=== PATIENT | female | born 1990 | race Caucasian/White ===

== ENCOUNTER 2021-07-06 21:32 | Emergency (ER) | payer OTHER, SELFPAY ==
[2021-07-06 21:42] VITALS: BP 119/72; PULSE 104; RESP 18; TEMP 37.4; O2SAT 98; BMI 22.8
--- NOTE | 2021-07-06 21:54 | XR_ITS ---
PROCEDURE INFORMATION: Exam: XR Chest Exam date and time: 07/06/2021 9:54 PM Age: 30 years old Clinical indication: Shortness of breath; Patient HX: Short of breath; Additional info: SOA TECHNIQUE: Imaging protocol: XR of the chest. Views: 1 view. COMPARISON: No relevant prior studies available. FINDINGS: Lungs: Unremarkable. No consolidation. Pleural spaces: Unremarkable. No pleural effusion. No pneumothorax. Heart/Mediastinum: Unremarkable. No cardiomegaly. Bones/joints: Unremarkable. IMPRESSION: No acute findings.
[2021-07-06 22:00] LABS: Coronavirus 19, PCR Not Detected (NotDetected); Influenza A, PCR Not Detected (NotDetected); Influenza B, PCR Not Detected (NotDetected)
[2021-07-06 22:08] LABS: Basophils # 0.1 K/mm3 (0-0.2); Basophils % 0.4 % (0.1-2.0); Eosinophils # 0.2 K/mm3 (0.0-0.4); Eosinophils % 1.3 % (0.1-12.0); Hematocrit 41.3 % (37.0-47.0); Hemoglobin 13.6 g/dL (12.2-16.2); Lymphocytes # 2.4 K/mm3 (0.7-4.5); Lymphocytes % 15.6 % (10-50); Mean Corpuscular Hemoglobin 29.7 pg (27.0-31.2); Mean Platelet Volume 8.3 fl (7.4-10.4); Monocytes # 0.6 K/mm3 (0.1-1.0); Monocytes % 3.6 % (1.7-9.3); Neutrophils # 12.2 K/mm3 (1.8-7.8); Neutrophils % 79.1 % (37.0-80.0); Platelet Count 353 K/mm3 (142-424); Red Blood Count 4.59 M/mm3 (4.20-5.40); Red Cell Distribution Width 13.6 % (11.5-17.5); White Blood Count 15.4 K/mm3 (4.8-10.8)
[2021-07-06 22:10] LABS: MANUAL DIFFERENTIAL MANUAL DIFFERENTIAL (MANUAL DIFF)
[2021-07-06 22:18] LABS: HCG Qualitative, Serum Negative (Negative)
[2021-07-06 22:19] LABS: Eosinophils % 1 % (0-3); Lymphocytes % 13 % (10-50); Monocytes % 1 % (2-9); Neutrophils % 78 % (42-76); Platelet Estimate Normal; RBC Morphology Normal; Total Cells Counted 100
[2021-07-06 22:20] LABS: Alanine Aminotransferase 19 U/L (12-78); Albumin Level 4.7 g/dl (3.5-5.0); Albumin/Globulin Ratio 1.7 (1.1-1.8); Alkaline Phosphatase 85 U/L (38-126); Anion Gap 14.3 mEq/L (5-15); Aspartate Amino Transferase 27 U/L (14-36); Bilirubin,Total 0.4 mg/dl (0.2-1.3); Blood Urea Nitrogen 10 mg/dl (7-17); Calcium 9.3 mg/dl (8.4-10.2); Carbon Dioxide 23 mmol/L (22.0-30.0); Chloride 104 mmol/L (98-107); Creatinine Clearance Estimated 146 mL/min (50-200); Estimated Glomerular Filt Rate 117 ml/min (>60); GFR (African American) 141 ML/MIN (>60); Globulin 2.8 g/dL (1.3-3.2); Glucose 130 mg/dl (74-100); Potassium 3.3 mmoL/L (3.5-5.1); Sodium 138 mmol/L (136-145); Total Protein,Serum 7.5 g/dl (6.3-8.2)
[2021-07-06 22:25] LABS: C-Reactive Protein 2.6 mg/L (0-4)
[2021-07-06 22:38] LABS: Erythrocyte Sedimentation Rate 14 mm/hr (0-20)
[2021-07-06 22:40] LABS: Procalcitonin < 0.030 ng/mL (0.0-2.0)
--- NOTE | 2021-07-06 23:43 | HMH.EDNVD ---
ED Disposition Clinical Impression: Pharyngitis Qualifiers: Pharyngitis/tonsillitis etiology: unspecified etiology Qualified Code(s): J02.9 - Acute pharyngitis, unspecified Disposition: Home, Self-Care Condition on Discharge: Good Instructions: Sore Throat, DI for COVID-19 (Suspected or Confirmed ) Additional Instructions: fluids and see pcp for follow up Prescriptions: predniSONE [Prednisone 20mg Tab] 20 mg PO BID #10 tab Prescription Printed Azithromycin [Zithromax 250mg tab] 250 mg PO DIRECTED #6 tab Prescription Printed Referrals: Provider,Referral, [Primary Care Provider] - - Critical Care Critical Care Time: No Attestation: On 07/06/21, the high probability of a clinically significant, sudden or life threatening deterioration of the following system(s) required my full and direct attention, intervention and personal management. The time I documented below is in addition to time spent performing reported procedures but includes the following listed in this critical care notation. Medical Decision Making - Medical Records Medical records reviewed: Yes: I reviewed the patient's medical records. - Herman Inquiry Pt receiving controlled substance: No Vital Signs: 07/06/21 21:42 Temperature 99.3 F Temperature Source Oral Pulse Rate [Right Brachial] 104 H Respiratory Rate 18 Blood Pressure [Right Arm] 119/72 Blood Pressure Mean [Right Arm] 87 02 Sat by Pulse Oximetry 98 Oxygen Delivery Method Room Air - Lab Data Lab results reviewed: Yes: I reviewed the patient's lab results. Lab Results 07/06/21 20:45: SARS-CoV-2 (PCR) Not detected, Influenza A Untype (PCR) Not detected, Influenza Type B (PCR) Not detected 07/06/21 21:58: WBC 15.4 H, RBC 4.59, Hgb 13.6, Hct 41.3, MCV 90.0, MCH 29.7, MCHC 33.0, RDW 13.6, Plt Count 353, MPV 8.3, Neut % (Auto) 79.1, Lymph % (Auto) 15.6, Love % (Auto) 3.6, Eos % (Auto) 1.3, Baso % (Auto) 0.4, Neut # (Auto) 12.2 H, Lymph # (Auto) 2.4, Love # (Auto) 0.6, Eos # (Auto) 0.2, Baso # (Auto) 0.1, Total Counted 100, Neutrophils % (Manual) 78 H, Band Neutrophils % 7.0, Lymphocytes % (Manual) 13, Monocytes % (Manual) 1 L, Eosinophils % (Manual) 1, Platelet Estimate Normal, RBC Morphology Normal 07/06/21 21:58: Sodium 138, Potassium 3.3 L, Chloride 104, Carbon Dioxide 23, Anion Gap 14.3, BUN 10, Creatinine 0.60, Estimated Creat Clear 146, Estimated GFR 117, Est GFR ( Amer) 141, Glucose 130 H, Calcium 9.3, Total Bilirubin 0.4, AST 27, ALT 19, Alkaline Phosphatase 85, C-Reactive Protein 2.6, Total Protein 7.5, Albumin 4.7, Globulin 2.8, Albumin/Globulin Ratio 1.7 07/06/21 21:58: Serum HCG, Qual Negative 07/06/21 21:58: ESR 14 07/06/21 21:58: Procalcitonin < 0.030 Result diagrams: 07/06/21 21:58 07/06/21 21:58 Orders (Tests/Meds): ED MEDICATIONS Generic Name Dose Route Start Last Admin Trade Name Freq PRN Reason Stop Dose Admin Sodium Chloride 1,000 mls @ 999 mls/hr 07/06/21 22:00 07/06/21 22:00 Sod Chlor 0.9% 1000ml Bag IV 07/06/21 23:00 999 mls/hr .Q1H1M BEATA Administration Discontinued Medications Generic Name Dose Route Start Last Admin Trade Name Freq PRN Reason Stop Dose Admin Dexamethasone Sodium Phosphate 10 mg 07/06/21 21:52 07/06/21 23:36 Dexamethasone 4mg/Ml 5ml Mdv IV 07/06/21 21:53 10 mg ONCE ONE Administration Ketorolac Tromethamine 30 mg 07/06/21 21:52 07/06/21 23:36 Ketorolac 30mg/Ml Vial IV 07/06/21 21:53 30 mg ONCE ONE Administration Ondansetron HCl 4 mg 07/06/21 21:52 07/06/21 23:36 Ondansetron 4mg/2ml Vial IV 07/06/21 21:53 4 mg ONCE ONE Administration ORDERS Category Date Time Status UA [Urinalysis and Microscopic] Stat Lab 07/06/21 23:44 Received - Radiology Data #1 Image(s): Chest Image Reviewed: Yes I reviewed the patient's radiology image, Yes I have reviewed radiologist's interpretation Preliminary Findings: Normal/NAD Medical Decision Narrative:
[2021-07-06 23:44] LABS: Microscopic, Urine URINE MICROSCOPIC (MICROSCOPIC)
[2021-07-06 23:47] LABS: Appearance,Urine CLEAR (Clear); Bilirubin,Urine Negative (Negative); Blood, Urine Negative (Negative); Color,Urine STRAW (Yellow); Glucose,Urine (UA) Negative (Negative); Ketones,Urine Negative (Negative); Leukocyte Esterase,Urine Negative (Negative); Nitrate,Urine Negative (Negative); Protein,Urine Negative (Negative); Specific Gravity, Urine 1.015 (1.005-1.030); Urobilinogen,Urine 0.2 EU/dl (0.2)
[2021-07-06 23:55] VITALS: BP 123/75; PULSE 75; RESP 19; TEMP 37.1; O2SAT 98
== END 2021-07-07 00:05 | disposition home or self-care (01) ==
PROVIDERS: Emergency Provider Emergency Medicine
DX: J02.9 Acute pharyngitis, unspecified (principal); F17.210 Nicotine dependence, cigarettes, uncomplicated; Z20.822 Contact with and (suspected) exposure to COVID-19
CPT/HCPCS: 71045; 80053; 81001; 84145; 84703; 85007; 85025; 85651; 86140; 96365; 96375; 99283; J2405; U0003

== ENCOUNTER 2021-07-09 16:54 | Emergency (ER) | payer OTHER, SELFPAY ==
[2021-07-09 18:39] VITALS: BP 109/52; PULSE 81; RESP 20; TEMP 36.9; O2SAT 98; BMI 23.4
--- NOTE | 2021-07-09 19:05 | HMH.EDUTC ---
[facility] [place] Clinical Impression: Viral syndrome, Exposure to COVID-19 virus Disposition: Home, Self-Care Condition on Discharge: Good Instructions: DI for Viral Syndrome, DI for COVID-19 (Suspected or Confirmed ), Preventing the Spread of Coronavirus Discharge Instructions Additional Instructions: Drink plenty of fluids. Take tylenol for pain or fever. Continue the medications that you are already on. Return if you begin to have difficulty breathing. Follow up with your regular doctor. GO TO THE ER FOR ANY WORSENING SYMPTOMS Quarantine until you know the results of your covid-19 test. If it is positive, the health department should call you and give you further instructions about your length of Quarantine and other thing. Referrals: Provider,Referral, [Primary Care Provider] - Forms: Work/School Release Time of Disposition: 19:17 Medical Decision Making - Medical Records Medical records reviewed: No: I reviewed the patient's medical records. - Herman Inquiry Pt receiving controlled substance: No Vital Signs: 07/09/21 18:39 07/09/21 19:32 Temperature 98.5 F 98.3 F Temperature Source Oral Pulse Rate 84 Pulse Rate [Left] 81 Respiratory Rate 20 18 Blood Pressure 106/63 L Blood Pressure [Right Arm] 109/52 L Blood Pressure Mean [Right Arm] 71 02 Sat by Pulse Oximetry 98 [facility] [place] - General Stated complaint: covid re test Time Seen by Provider: 07/09/21 19:05 Mode of Arrival: Ambulatory Source of Information: Patient Limitations: No Limitations Description of Symptoms (Recalled from Triage Doc. by RN): pt tested for covid last this past wednesday. Her results were negative. pt states she is still having fever, loss of taste, n/v, fatigue and GUZMAN. HEENT Symptoms (Recalled from RN notes): Yes (loss of taste and GUZMAN) Resp Symptoms (Recalled from RN notes): No Skin Symptoms (Recalled from RN notes): No MS Symptoms (Recalled from RN notes): No Functional Status (Recalled from RN notes): fatigue - History of Present Illness Provider Complaint: She was in the er here last Wednesday (3 days ago) with these same symptoms. She states that she tested negative for covid-19 then. Since then she has continued to feel the same way. She was prescribed a z-pack in the er that she is taking, but she states that it is not helping. She would like to be tested again for covid-19 because she was exposed before these symptoms began. - Related Data Previous Rx's Medication Instructions Recorded Azithromycin [Zithromax 250mg 250 mg PO DIRECTED #6 tab 07/06/21 tab] predniSONE [Prednisone 20mg 20 mg PO BID #10 tab 07/06/21 Tab] Allergies Allergy/AdvReac Type Severity Reaction Status Date / Time clindamycin [CLINDAMYCIN] Allergy Mild Unverified 11/09/17 14:01 codeine [CODEINE] Allergy Mild Unverified 11/09/17 14:01 - Worker's Comp Is this a Worker's Comp case?: No [facility] History - Hepatitis A Screen Drug use history?: No High risk sexual behaviors?: No History of sexually transmitted infection?: No Currently employed?: No Childcare worker?: No Do you have indoor plumbing?: Yes Do you have electricity?: Yes Attestation statement:: This patient has been screened for Hepatitis A risk factors. I have reviewed the patient's past medical history: Yes ROS Obtained: Yes All systems reviewed & no additional complaints - Constitutional Constitutional: Reports system reviewed and no additional complaints, except as docu - Eyes Eyes: Reports system reviewed and no additional complaints, except as docu - ENT Ears, Nose, Mouth, and Throat: Reports system reviewed and no additional complaints, except as docu - Cardiovascular Cardiovascular: Reports system reviewed and no additional complaints, except as docu - Respiratory Respiratory: Reports system reviewed and no additional complaints, except as docu - Gastrointestinal Gastrointestingal: Reports: system review
[2021-07-09 19:32] VITALS: BP 106/63; PULSE 84; RESP 18; TEMP 36.8
== END 2021-07-09 19:39 | disposition home or self-care (01) ==
PROVIDERS: Emergency Provider Nurse Practitioner Family
DX: B34.9 Viral infection, unspecified (principal); Z20.822 Contact with and (suspected) exposure to COVID-19; Z88.1 Allergy status to other antibiotic agents; Z88.5 Allergy status to narcotic agent
CPT/HCPCS: 99202; G0463; U0003

== ENCOUNTER 2023-04-25 16:19 | Emergency (ER) | payer MEDICAID, SELFPAY ==
[2023-04-25 16:21] VITALS: BP 133/86; PULSE 103; RESP 17; TEMP 36.7; O2SAT 100; BMI 19.8
[2023-04-25 16:30] VITALS: BP 122/82; PULSE 88; RESP 18; O2SAT 100
--- NOTE | 2023-04-25 16:49 | HMH.EDGENADL ---
Discharge Plan Disposition Patient Disposition: Home, Self-Care Condition: Fair Prescriptions Prescriptions: New erythromycin 5 mg/gram (0.5 %) ointment 1 applic ophthalmic (eye) QID Qty: 3.5 0RF No Action azithromycin 250 MG tablet 250 mg PO DIRECTED Qty: 6 0RF Rx Instructions: Take two (2) tablets on day #1, then one (1) tablet day #2 thru #5 prednisone 20 MG tablet 20 mg PO BID Qty: 10 0RF Referrals Follow up/Referrals: Provider,Referral, MD [Primary Care Provider] - See instructions Activity Restrictions/Add. Instructions Additional Instructions/Restrictions: You have been evaluated for right eye pain. This is due to a large corneal abrasion. Please use erythromycin ointment 4 times daily as prescribed. Tylenol and Motrin for pain. It is very important that you follow-up with an eye doctor, preferably within 24 to 48 hours. Return to the emergency department at once for any new or worsening symptoms. Clinical Impressions Clinical Impression: Corneal abrasion Instructions Patient Instructions: DI for Corneal Abrasion Discharge ED Provider: Hiral Burrows Adult HPI General Chief complaint: Eye Problems Stated complaint: RT eye irritated Time Seen by Provider: 04/25/23 16:31 Mode of Arrival: Ambulatory Limitations: No Limitations Description of Symptoms (Recalled from ER Triage Doc. by RN): PT WITH PAIN TO RIGHT EYE, FOREIGN BODY SENSATION, LIGHT SENSITIVE AND BLURRY VISION History of Present Illness HPI narrative: 32-year-old female presenting to the emergency department with right eye pain. Accident happened on Wednesday, 2 days ago. She was jumping on a trampoline when she believes that she got poked in the eye by another person. She had immediate pain and tearing. Over the last 2 days she has had sensitivity to light. Feels like her eye is watering frequently. Her vision is somewhat blurry. She denies any pain with eye motion. She does not wear glasses or contact lenses. No medications prior to arrival. Related Data Previous Rx's Medication Instructions Recorded azithromycin 250 mg tablet 250 mg PO DIRECTED #6 tabs 07/06/21 prednisone 20 mg tablet 20 mg PO BID #10 tabs 07/06/21 erythromycin 5 mg/gram (0.5 %) eye 1 applic ophthalmic (eye) QID #3.5 04/25/23 ointment grams Allergies Allergy/AdvReac Type Severity Reaction Status Date / Time clindamycin [CLINDAMYCIN] Allergy Mild Unverified 11/09/17 14:01 codeine [CODEINE] Allergy Mild Unverified 11/09/17 14:01 [facility] Disclaimer: The information contained in this section may have been updated after the patient was seen, as this information can be updated by other users. Social History Smoking Status: Never smoker alcohol intake: never current occupational status: employed Travel in the last 8 weeks: None ROS Obtained: Yes All systems reviewed & no additional complaints except as documented Constitutional Constitutional: Denies headache(s) Eyes Eyes: Reports irritation, Denies loss of vision, Reports sensitivity to light, Reports eye pain and Reports photophobia ENT Ears, Nose, Mouth, and Throat: Denies dizziness and Denies headache(s) Neurologic Neurologic: Denies dizziness, Denies headache(s) and Denies loss of vision Physical Exam General General appearance: alert and in no apparent distress Head Head exam: atraumatic and normocephalic Eye Eye exam: Present conjunctival redness (Right), discharge and other (Obvious irritation, abrasion to the right cornea.) ENT ENT exam: Present normal exam and mucous membranes moist Chest Chest inspection: Present normal inspection and symmetric chest wall rise Respiratory Respiratory exam: Present normal lung sounds bilaterally; Absent respiratory distress or wheezes Cardiovascular Cardiovascular exam: Present regular rate and normal rhythm Abdominal Exam Abdominal exam: Present soft Neurological Exam Neurological exam: Present alert an
[2023-04-25 17:00] VITALS: BP 114/81; PULSE 83; O2SAT 96
[2023-04-25 17:23] VITALS: BP 114/81; PULSE 81; RESP 17; TEMP 36.7; O2SAT 99
== END 2023-04-25 17:24 | disposition home or self-care (01) ==
PROVIDERS: Emergency Provider Emergency Medicine
DX: S05.01XA Injury of conjunctiva and corneal abrasion without foreign body, right eye, initial encounter (principal); W50.0XXA Accidental hit or strike by another person, initial encounter; Z23 Encounter for immunization
CPT/HCPCS: 90471; 90715; 96372; 99283; 99284

== ENCOUNTER 2024-04-10 12:45 | Emergency (ER) | payer MEDICAID, SELFPAY ==
[2024-04-10 12:50] VITALS: BP 120/78; PULSE 84; RESP 20; TEMP 36.9; O2SAT 98; BMI 21.2
--- NOTE | 2024-04-10 13:05 | EXP.UTC ---
Discharge Plan Disposition Patient Disposition: Home, Self-Care Condition: Good Prescriptions Prescriptions: New prednisone 5 mg tablets,dose pack See Rx Instructions .ROUTE .COMPLEX Qty: 21 0RF Rx Instructions: take as directed on package instructions Referrals Follow up/Referrals: Provider,Referral, MD [Primary Care Provider] - See instructions Activity Restrictions/Add. Instructions Additional Instructions/Restrictions: Start oral steriods tomorrow Over the counter Benadryl for itching Oatmeal baths may help with rash and drying of rash Follow up with your Family Doctor if needed Straight to ER if any life threatening symptom Clinical Impressions Clinical Impression: Rash and nonspecific skin eruption Instructions Patient Instructions: Poison Dino, Poison [place], Poison [place], DI for Poison Dino Allergy Discharge ED Provider: Julieth Lambert [facility] General Stated complaint: poison dino Mode of Arrival: Ambulatory Source of Information: Patient Limitations: No Limitations Time Seen by Provider: 04/10/24 13:05 Description of Symptoms (Recalled from Triage Doc. by RN): PATIENT C/O POISON DINO RASH X 2-3 WEEKS THAT IS NOT GETTING BETTER WITH BENDRYL HEENT Symptoms (Recalled from RN notes): No Resp Symptoms (Recalled from RN notes): No Skin Symptoms (Recalled from RN notes): Yes MS Symptoms (Recalled from RN notes): No Functional Status (Recalled from RN notes): WNL History of Present Illness Provider Complaint: Patient states that she has been fighting poison dino rash for a couple of weeks but now she has started breaking out on her face and it is spreading on her legs so she came in to get a steriod shot to help it Related Data Previous Rx's Medication Instructions Recorded prednisone 5 mg tablets in a dose See Rx Instructions PO .COMPLEX 04/10/24 pack #21 tabs Allergies Allergy/AdvReac Type Severity Reaction Status Date / Time clindamycin [CLINDAMYCIN] Allergy Mild Verified 04/10/24 13:02 codeine [CODEINE] Allergy Mild Verified 04/10/24 13:02 Worker's Comp Is this a Worker's Comp case?: No [facility] Disclaimer: The information contained in this section may have been updated after the patient was seen, as this information can be updated by other users. Surgical History (Updated 04/10/24 @ 13:02 by Shantal Short RN) History of tympanostomy tube placement H/O tubal ligation History of tonsillectomy History of cholecystectomy Social History (Updated 04/25/23 @ 17:02 by Hiral Burrows DO) Smoking Status: Never smoker alcohol intake: never current occupational status: employed Travel in the last 8 weeks: None ROS Obtained: Yes All systems reviewed & no additional complaints except as documented and Yes Systems reviewed as appropriate & no additional complaints except as documented Constitutional Constitutional: Reports system reviewed and no additional complaints, except as documented and Reports as per HPI Cardiovascular Cardiovascular: Reports system reviewed and no additional complaints, except as documented and Reports as per HPI Respiratory Respiratory: Reports system reviewed and no additional complaints, except as documented and Reports as per HPI Gastrointestinal Gastrointestingal: Reports system reviewed and no additional complaints, except as documented and as per HPI Musculoskeletal Musculoskeletal: Reports system reviewed and no additional complaints, except as documented and Reports as per HPI Integumentary/Breasts Skin/Breast: Reports system reviewed and no additional complaints, except as documented, Reports as per HPI, Reports pruritus and Reports rash Physical Exam General General appearance: alert and in no apparent distress ENT ENT exam: Present mucous membranes moist Respiratory Respiratory exam: Present normal lung sounds bilaterally; Absent respiratory distress or wheezes Cardiovascular Cardiovascular exam: Present regular rate, normal rhythm and normal heart sounds Neurological Exam Neurological exam: Present alert, oriented X3 and normal gait Skin Skin exam: Present rash (red raised linear like rash noted appears like poison dino rash) Medical Decision Making Herman Inquiry Pt receiving controlled substance: No Herman was queried for this patient: No Vital Signs: 04/10/24 12:50 Temperature 98.5 F Temperature Source Oral Pulse Rate [Left Brachial] 84 Respiratory Rate 20 Blood Pressure [Left Arm] 120/78 Blood Pressure Mean [Left Arm] 92 Blood Pressure Source [Left Arm] Automatic Cuff Blood Pressure Position [Left Arm] Sitting 02 Sat by Pulse Oximetry 98 Oxygen Delivery Method Room Air Medical Decision Narrative: Patient states she has had tubal
[2024-04-10 13:15] VITALS: BP 120/78; PULSE 84; RESP 20; TEMP 36.9; O2SAT 98
[2024-04-10] MEDS: METHYLPREDNISOLONE SOD SUCC 125MG VIAL 125 MG IM (13:15)
== END 2024-04-10 13:25 | disposition home or self-care (01) ==
PROVIDERS: Emergency Provider Nurse Practitioner
DX: L23.7 Allergic contact dermatitis due to plants, except food (principal); R21 Rash and other nonspecific skin eruption; W60.XXXA Contact with nonvenomous plant thorns and spines and sharp leaves, initial encounter
CPT/HCPCS: 96372; 99212; 99214; G0463

== ENCOUNTER 2025-04-03 11:01 | Emergency (ER) | payer MEDICAID, SELFPAY ==
[2025-04-03 11:07] VITALS: BP 125/78; PULSE 105; RESP 20; TEMP 36.8; O2SAT 98; BMI 22.0
[2025-04-03 11:13] LABS: Microscopic, Urine URINE MICROSCOPIC (MICROSCOPIC)
[2025-04-03 11:15] LABS: Appearance,Urine CLEAR (Clear); Bilirubin,Urine Negative (Negative); Blood, Urine Negative (Negative); Color,Urine YELLOW (Yellow); Glucose,Urine (UA) Negative (Negative); Ketones,Urine Negative (Negative); Leukocyte Esterase,Urine Negative (Negative); Nitrate,Urine Negative (Negative); Protein,Urine Negative (Negative); Specific Gravity, Urine <= 1.005 (1.005-1.030); Urobilinogen,Urine 0.2 EU/dl (0.2)
[2025-04-03 11:35] LABS: Squamous Epithelial Cell,Urine Occasional #/hpf (0-5)
--- NOTE | 2025-04-03 12:12 | ED_ITS ---
Discharge Plan Disposition Patient Disposition: Home, Self-Care Chief Complaint: Urogenital-Female Prescriptions Prescriptions: No Action prednisone 5 mg tablets,dose pack See Rx Instructions .ROUTE .COMPLEX Qty: 21 0RF Rx Instructions: take as directed on package instructions Referrals Follow up/Referrals: Provider,Referral, MD [Primary Care Provider] - See instructions Activity Restrictions/Add. Instructions Additional Instructions/Restrictions: Follow-up with your family doctor as needed for this visit to the emergency department. Be sure to stay plenty hydrated Clinical Impressions Clinical Impression: Abnormal urine sediment Instructions Patient Instructions: DI for Urinary Tract Infection (UTI), DI for Urinary Tract Infection in Children Print Language Print Language: Albanian Discharge ED Provider: Dae Mccann General Adult HPI General Chief complaint: Urogenital-Female Stated complaint: brown sand in urine lower back pain Time Seen by Provider: 04/03/25 11:44 Mode of Arrival: Ambulatory Source of Information: Patient Description of Symptoms (Recalled from ER Triage Doc. by RN): pt states last week she had cloudy urine then for the last 3 days she has been peeing sand and having bilateral flank pain denies any fever, n/v. History of Present Illness HPI narrative: Please note that above description of symptoms, in this electronic medical record under categorization of recalled from ER triage doctor by RN are reflective of an initial nursing assessment, however, is not reflective of my full history and physical exam that was personally taken and clarified. Consequentially, this preceding description of symptoms, which may include the patient's categorized chief complaint in the EMR, do not reflect my personal clinical impression, and the ultimate description of history of present illness and patient stated complaints should be deferred to this section of the note. Unless stated otherwise or congruent with this section of the note, additional signs, symptoms, or incongruence should be interpreted as inaccurate with my clinical impression. Related Data Previous Rx's ?Medication ?Instructions ?Recorded prednisone 5 mg tablets in a dose See Rx Instructions PO .COMPLEX 04/10/24 pack #21 tabs Allergies Allergy/AdvReac Type Severity Reaction Status Date / Time clindamycin (CLINDAMYCIN) Allergy Mild Hives Verified 04/03/25 11:49 codeine (CODEINE) Allergy Mild Rash Verified 04/03/25 11:49 Cephalosporins Allergy Hives Verified 04/03/25 11:49 Penicillins Allergy Hives Verified 04/03/25 11:49 PFSH PFSH Disclaimer: The information contained in this section may have been updated after the patient was seen, as this information can be updated by other users. Surgical History (Updated 04/10/24 @ 13:02 by Shantal Short RN) History of tympanostomy tube placement H/O tubal ligation History of tonsillectomy History of cholecystectomy Social History (Updated 04/25/23 @ 17:02 by Hiral Burrows DO) Smoking Status: Never smoker alcohol intake: never current occupational status: employed Travel in the last 8 weeks?: None Have you lived/traveled outside [place] in past 30 days?: No Contact w/someone who lives/traveled outside [place] past 30 days?: No Exposure to someone with infectious disease in past 14 days?: No Do you have a fever (greater than 100.4 F or 38 C)?: No Have you tested positive for COVID-19?: No Exposed to someone with COVID-19 in past 14 days?: No Do you have a sore throat?: No Do you have a cough?: No Do you have any weakness?: No Do you have any diarrhea?: No Are you experiencing any unusual bleeding?: No Do you have any muscle aches/pain?: No Do you have any abdominal pain?: No Are you experiencing loss of taste or smell?: No Other Medical History Have you received the Flu Vaccine for this season: No Have you received the Pneumonia Vaccine: No ROS Obtained: Yes All systems reviewed & no additional complaints except as documented Physical Exam General General appearance: alert Head Head exam: atraumatic and normocephalic Eye Eye exam: Present normal appearance, PERRL and EOMI Neck Neck exam: Present normal inspection, full ROM and trachea midline Respiratory Respiratory exam: Absent respiratory distress, wheezes, stridor, accessory muscle use or prolonged expiratory phase Cardiovascular Cardiovascular exam: Present other (Pulses equal symmetric in upper and lower extremities) Abdominal Exam Abdominal exam: Present soft; Absent distention, tenderness or pulsatile mass Extremities Exam Extremities exam: Absent edema Neurological Exam Neurological exam: Present alert, oriented X3 and CN II-XII intact; Absent motor sensory deficit Skin Skin exam: Present warm and dry; Absent diaphoresis or erythema Medical Decision Making Medical Records Medical records reviewed: Yes I reviewed the patient's medical records. Screening: Per USPSTF and CDC recommendations, given the prevalence of disease in our region, it is our hospital?s policy to screen for HIV and viral Hepatitis for all patients aged 18 and over and those with ongoing risk factors. Herman Inquiry Pt receiving controlled substance: No Herman was queried for this patient: No Vital Signs: 04/03/25 11:07 Temperature 98.2 F Temperature Source Oral Pulse Rate [Left Radial] 105 H Respiratory Rate 20 Blood Pressure [Right Arm] 125/78 Blood Pressure Mean [Right Arm] 93 02 Sat by Pulse Oximetry 98 Oxygen Delivery Method Room Air Lab Data Lab Results 04/03/25 11:09: Urine Color Yellow, Urine Appearance Clear, Urine pH 6.0, Ur Specific Bailey <= 1.005, Urine Protein Negative, Urine Glucose (UA) Negative, Urine Ketones Negative, Urine Blood Negative, Urine Nitrate Negative, Urine Bilirubin Negative, Urine Urobilinogen 0.2, Ur Leukocyte Esterase Negative, Urine RBC None, Urine WBC None, Ur Squamous Epith Cells Occasional, Urine Bacteria None Orders (Tests/Meds): ORDERS Category Date Time Status UA [Urinalysis and Microscopic] Stat Lab 04/03/25 11:09 Completed Medical Decision Narrative: 34-year-old female presenting with chief complaint of peeing sand. Started last night, worsened to today. No burning, fevers, chills, difficulty urinating, or any other complaints. States she has never had this before. History obtained with patient. On arrival, very clinically well. No abdominal or flank tenderness. Differential includes urinary tract infection, urinary sediment, among others. Urinalysis to be obtained. On independent interpretation, this was negative. Further conversation had with patient regarding utility of other testing including labs, kidney function, imaging, among others. I feel likely not going to further contribute to workup and likely negative given patient has absolutely no symptoms. She voiced understanding and was agreeable to no further workup. Because patient at baseline without signs or symptoms of clinical decompensation, deemed appropriate for discharge. Results were relayed to patient who voiced understanding and were agreeable to outpatient management and follow up. I discussed my clinical impression with patient and answered all questions. At this time, the evidence for any other entities in the differential is insufficient to warrant any further testing or ED observation. This was explained as well. Advisory was given that persistent or worsening symptoms require further evaluation. I confirmed the understanding of this discussion. Emergency Medical Services Coordinator disclaimer Much of this encounter note is an electronic industrial machine operator spoken language to printed text. Electronic industrial machine operator of the spoken language may permit errors. Although I have reviewed the note, some errors may still exist. Critical Care Critical Care Time Critical Care Time: No
[2025-04-03 12:38] VITALS: BP 125/78; PULSE 104; RESP 18; TEMP 37.1; O2SAT 97
[2025-04-03 12:40] VITALS: BP 125/78; PULSE 104; O2SAT 97
== END 2025-04-03 12:39 | disposition home or self-care (01) ==
PROVIDERS: Emergency Provider Emergency Medicine
DX: R82.998 Other abnormal findings in urine (principal)
CPT/HCPCS: 81001; 99283